=== PATIENT | male | born 1980 | race Two or more races ===

== ENCOUNTER 2017-11-06 08:56 | Emergency (ER) | payer MEDICAID, OTHER ==
[~2017-11-06] VITALS: Ht 175.3 cm; Wt 122.5 kg
[2017-11-06 09:16] VITALS: BP_SYST 71
== END 2017-11-06 10:17 | disposition home or self-care (01) ==
LOC: ER 08:58
DX: S39.012A Strain of muscle, fascia and tendon of lower back, initial encounter (principal); Z88.1 Allergy status to other antibiotic agents; X50.1XXA Overexertion from prolonged static or awkward postures, initial encounter; Y93.89 Activity, other specified; Y92.89 Other specified places as the place of occurrence of the external cause; Y99.8 Other external cause status
CPT/HCPCS: 72100

== ENCOUNTER 2017-11-26 10:53 | Emergency (ER) | payer MEDICAID ==
[~2017-11-26] VITALS: Ht 172.7 cm; Wt 95.7 kg
[2017-11-26 13:15] VITALS: BP 118/52
== END 2017-11-26 14:49 | disposition home or self-care (01) ==
LOC: ER 10:54
DX: S30.0XXA Contusion of lower back and pelvis, initial encounter (principal); Z88.1 Allergy status to other antibiotic agents; W18.39XA Other fall on same level, initial encounter; Y93.89 Activity, other specified; Y99.8 Other external cause status; Y92.89 Other specified places as the place of occurrence of the external cause
CPT/HCPCS: 72100; 72220; 93005

== ENCOUNTER 2019-01-08 20:37 | Emergency (ER) | payer MEDICAID ==
[~2019-01-08] VITALS: Ht 175.3 cm; Wt 102.1 kg
[2019-01-08 21:13] LABS: Basophils # (auto) 0.1 uL; Basophils % (auto) 0.6 % (0.0-2.0); Eosinophils # (auto) 0.2 uL; Eosinophils % (auto) 1.7 % (0.0-7.0); Hematocrit 45.5 % (41.0-53.0); Hemoglobin 15.5 g/dL (13.5-17.5); Lymphocytes # (auto) 1.5 uL; Lymphocytes % (auto) 15.2 % (10.0-50.0); Mean Corpuscular Hemoglobin 33.7 pg (28.0-32.0); Monocytes # (auto) 0.8 uL; Monocytes % (auto) 8.7 % (0.0-12.0); Neutrophils % (auto) 73.8 % (37.0-80.0); Nucleated Red Blood Cells % 0.1 %; Platelet Count (auto) 161 10^3/uL (140-450); Red Cell Distribution Width 12.9 % (11.8-14.3); White Blood Cell 9.5 10^3/uL (4.4-10.8)
[2019-01-08 21:30] LABS: Alanine Aminotransferase 10 U/L (16-61); Albumin 4.4 g/dL (3.4-5.0); Anion Gap 7 (5-15); Aspartate Aminotransferase 23 U/L (15-37); BUN/Creatinine Ratio 16.4; Blood Urea Nitrogen 21 mg/dL (7-18); Calcium 8.5 mg/dL (8.5-10.1); Carbon Dioxide 27 mmol/L (21-32); Chloride 103 mmol/L (98-107); GFR African American 80 mL/min; GFR Non-African American 66 mL/min; Glucose 100 mg/dL (74-106); Potassium 3.7 mmol/L (3.5-5.1); Sodium 137 mmol/L (136-145)
[2019-01-08 21:35] LABS: Alkaline Phosphatase 70 U/L (45-117); Bilirubin, Total 0.5 mg/dL (0.2-1.0); Total Protein 7.7 g/dL (6.4-8.2)
[2019-01-09] MEDS ORDERED: KETOROLAC TROMETH 60MG/2ML VIAL IM ONE (07:15)
[2019-01-09] MEDS ORDERED: LORazepam 0.5 MG TAB PO ONE (07:15)
[2019-01-09 07:59] VITALS: BP 114/82
== END 2019-01-09 08:55 | disposition home or self-care (01) ==
LOC: ER 20:39
DX: F41.9 Anxiety disorder, unspecified (principal); R07.89 Other chest pain; Z88.1 Allergy status to other antibiotic agents
CPT/HCPCS: 36415; 71045; 80053; 83735; 83880; 84484; 85025; 85379; 93005; 96372; 99284; J1885

== ENCOUNTER 2020-05-06 13:56 | Emergency (ER) | payer MEDICAID ==
[~2020-05-06] VITALS: Ht 175.3 cm; Wt 95.3 kg
[2020-05-06 14:39] LABS: Basophils # (auto) 0 10 ^3/uL (0-0.2); Basophils % (auto) 0.7 % (0.0-2.0); Eosinophils # (auto) 0.1 10 ^3/uL (0-0.8); Eosinophils % (auto) 1.6 % (0.0-7.0); Hematocrit 42.2 % (41.0-53.0); Hemoglobin 14.5 g/dL (13.5-17.5); Lymphocytes # (auto) 1.3 10 ^3/uL (0.4-5.4); Lymphocytes % (auto) 21.9 % (10.0-50.0); Mean Corpuscular Hemoglobin 33.5 pg (28.0-32.0); Mean Corpuscular Hgb Conc. 34.4 g/dL (32.0-36.0); Mean Corpuscular Volume 97.1 fL (80.0-100.0); Monocytes % (auto) 17.9 % (0.0-12.0); Neutrophils # (auto) 3.4 10 ^3/uL (1.6-8.6); Neutrophils % (auto) 57.9 % (37.0-80.0); Nucleated Red Blood Cells % 0.1 %; Platelet Count (auto) 150 10^3/uL (140-450); Red Blood Cells 4.35 10^6/uL (4.5-5.90); White Blood Cell 5.8 10^3/uL (4.4-10.8)
[2020-05-06 14:49] LABS: INR 0.93 (0.9-1.15)
[2020-05-06 14:53] LABS: Albumin 3.8 g/dL (3.4-5.0); Anion Gap 5 (5-15); Blood Urea Nitrogen 19 mg/dL (7-18); Calcium 8.4 mg/dL (8.5-10.1); Carbon Dioxide 26 mmol/L (21-32); Chloride 108 mmol/L (98-107); Glucose 128 mg/dL (74-106); Magnesium 2.1 mg/dL (1.6-2.6); Potassium 3.9 mmol/L (3.5-5.1); Sodium 139 mmol/L (136-145)
[2020-05-06 14:58] LABS: Alanine Aminotransferase 38 U/L (16-61); Alkaline Phosphatase 65 U/L (45-117); Aspartate Aminotransferase 28 U/L (15-37); BUN/Creatinine Ratio 17.6; Bilirubin, Total 0.3 mg/dL (0.2-1.0); GFR African American 97 mL/min; GFR Non-African American 80 mL/min; Total Protein 7.2 g/dL (6.4-8.2)
[2020-05-06 16:01] VITALS: BP 111/84
== END 2020-05-06 16:42 | disposition home or self-care (01) ==
LOC: ER 13:56
DX: R20.0 Anesthesia of skin (principal); R53.1 Weakness; Z88.1 Allergy status to other antibiotic agents
CPT/HCPCS: 36415; 70450; 71045; 80053; 83605; 83735; 83880; 84484; 85025; 85610; 93005

== ENCOUNTER 2021-04-08 09:03 | Emergency (ER) | payer MEDICAID ==
[~2021-04-08] VITALS: Ht 175.3 cm; Wt 90.7 kg
[2021-04-08] MEDS ORDERED: CLINDAMYCIN 600 MG/4 ML VL IM ONE (10:45)
[2021-04-08] MEDS ORDERED: cefTRIAXone W LIDOCAINE 1 GM IM IM ONE (10:45)
[2021-04-08] MEDS ORDERED: CLIN300C8 PO (11:05)
[2021-04-08] MEDS ORDERED: CEPH-509 PO (11:05)
[2021-04-08 14:20] VITALS: BP 130/87
== END 2021-04-08 14:31 | disposition home or self-care (01) ==
LOC: ER 09:03
DX: L03.115 Cellulitis of right lower limb (principal); I25.10 Atherosclerotic heart disease of native coronary artery without angina pectoris; Z88.1 Allergy status to other antibiotic agents
CPT/HCPCS: 93971; 99284; J0696

== ENCOUNTER 2022-05-20 09:51 | Emergency (ER) | payer MEDICAID ==
[~2022-05-20] VITALS: Ht 175.3 cm; Wt 112.0 kg
[~2022-05-20 09:51] MED LIST: CEPH-509 PO; CLIN300C8 PO
[2022-05-20 10:48] LABS: Basophils # (auto) 0.1 10 ^3/uL (0-0.2); Basophils % (auto) 0.5 % (0.0-2.0); Eosinophils # (auto) 0.1 10 ^3/uL (0-0.8); Eosinophils % (auto) 0.7 % (0.0-7.0); Hematocrit 41.4 % (41.0-53.0); Hemoglobin 13.8 g/dL (13.5-17.5); Lymphocytes % (auto) 5.5 % (10.0-50.0); Mean Corpuscular Hemoglobin 32.4 pg (28.0-32.0); Mean Corpuscular Hgb Conc. 33.4 g/dL (32.0-36.0); Monocytes # (auto) 1.5 10 ^3/uL (0-1.3); Monocytes % (auto) 8.2 % (0.0-12.0); Neutrophils # (auto) 15.8 10 ^3/uL (1.6-8.6); Neutrophils % (auto) 85.1 % (37.0-80.0); Nucleated Red Blood Cells % 0.1 %; Red Blood Cells 4.27 10^6/uL (4.5-5.90); Red Cell Distribution Width 14.2 % (11.8-14.3); White Blood Cell 18.6 10^3/uL (4.4-10.8)
[2022-05-20 11:08] LABS: Albumin 3.8 g/dL (3.4-5.0); Calcium 8.5 mg/dL (8.5-10.1); Potassium 3.4 mmol/L (3.5-5.1)
[2022-05-20 11:12] LABS: Total Protein 7.4 g/dL (6.4-8.2)
[2022-05-20] MEDS ORDERED: IOHEXOL 350 MG/ML 100ML IJ ONE (11:31)
[2022-05-20 16:39] VITALS: BP 127/74
== END 2022-05-20 16:43 | disposition home or self-care (01) ==
LOC: ER 09:51
DX: R22.41 Localized swelling, mass and lump, right lower limb (principal); R07.89 Other chest pain; J02.9 Acute pharyngitis, unspecified; I25.10 Atherosclerotic heart disease of native coronary artery without angina pectoris; Z88.1 Allergy status to other antibiotic agents
CPT/HCPCS: 36415; 71275; 80053; 85025; 93971; 99285; Q9967

== ENCOUNTER 2024-11-06 16:07 | Emergency (ER) | payer MEDICAID ==
[~2024-11-06] VITALS: Ht 175.3 cm; Wt 93.2 kg
[~2024-11-06 16:07] MED LIST changes: +CLIN1CAP70 PO; -CLIN300C8 PO
[2024-11-06] MEDS ORDERED: DONNATAL 5ml ORAL Elix (BELLADONNA ALK-PHENOBARB) PO ONE (16:45)
[2024-11-06] MEDS ORDERED: LIDOCAINE VISCOUS 2% 15ML UD PO ONE (16:45)
[2024-11-06] MEDS ORDERED: MAALOX PLUS or MAALOX 30 ML PO ONE (16:45)
--- NOTE | 2024-11-06 17:15 | ED.PDOC ---
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 Patient states the pain is constant, worse with lying down, associated with difficulty breathing when lying down due to pain with inspiration. He denies any fever, cough, nausea, vomiting, diarrhea, constipation or urinary symptoms. Patient states he had superior vena cava and brachiocephalic vein stent insertion in 2008 at [facility] for treatment of superior vena cava syndrome. They are known to be occluded since 2017. No additional intervention was recommended with regard to the occluded stents. Patient states vascular surgeon at [facility] advised him if it ain't broke, don't fix it. Chief Complaint: Abdominal Pain Time Seen by MD: 16:32 Primary Care Provider: LOS Pinto Notes: Nurses Notes, Medications, Allergies Allergies: Coded Allergies: Vancomycin (Verified Allergy, 10/13/11) Home Meds Active Scripts Clindamycin Hcl (Clindamycin Hcl) 300 Mg Cap, 300 MG PO TID for 10 Days, #30 CAP Prov:MORRO MALIK MD 04/08/21 Cephalexin (KEFLEX 500) 500 Mg Cap, 1 CAP PO TID for 10 Days, #30 CAP Prov:MORRO MALIK MD 04/08/21 Information Source: Patient Mode of Arrival: Ambulatory Past Medical History PAST MEDICAL HISTORY: Cancer, Thyroid Past Medical History (Other): Germ cell tumor, superior vena cava syndrome Surgical History (Other): SVC and brachiocephalic vein stents with a occlusion. Open chest surgery to remove germ cell tumor Family History Family History: Reviewed,noncontributory to illness Social History Smoker: Non-Smoker Alcohol: Denies ETOH Use Drugs: Marijuana Lives In: Home All Other Systems: Reviewed and Negative (Comprehensive systems review obtained and negative except for what is stated in the HPI.) Physical Exam General Appearance: No Apparent Distress HEENT: Other (Pupils and face symmetric. Moist mucous membranes.) Neck: Full Range of Motion, Normal Inspection Respiratory: Lungs Clear, No Accessory Muscle Use, No Respiratory Distress, Normal Breath Sounds, Other (Tenderness to palpation left lower costal margin) Cardiovascular: No Edema, No JVD, Regular Rate/Rhythm Breast Exam: Deferred Gastrointestinal: Soft, Tenderness (Localized left upper quadrant tenderness to palpation. No rebound or guarding.) Genitalia: Deferred Pelvic: Deferred Rectal: Deferred Extremities: Normal inspection, Normal range of motion, Non-tender, No pedal edema Neurologic: Alert (Oriented x4), Normal Affect, Normal Mood, Other (Ambulatory) Cerebellar Function: NOT DONE Reflexes: NOT DONE Skin: Dry, Normal Color, Warm Lymphatic: NOT DONE Was a procedure done? Was a procedure done?: No Differential Dx Considerations may include: Splenic infarction, congestive splenomegaly, acute pancreatitis, PUD or gastritis, splenic abscess, renal colic, pyelonephritis, musculoskeletal pain, splenic abscess, splenic rupture, AAA, aortic dissection, among others X-Ray, Labs, Meds, VS Vital Signs Date Time Temp Pulse Resp B/P (MAP) Pulse Ox O2 Delivery O2 Flow Rate FiO2 11/06/24 20:22 95 18 133/91 11/06/24 20:09 97.6 95 18 133/91 (105) 100 97.6 11/06/24 20:09 Room Air* 0 21 11/06/24 16:09 98.2 97 18 99/68 94 98.2 Lab Test 11/06/24 21:09 11/06/24 18:22 11/06/24 17:11 Range/Units Urine Color Yellow Yellow Urine Clarity Clear Clear Urine pH 6.0 5.0-9.0 Urine Specific [place] 1.028 1.001-1.035 Urine Protein Trace H Negative Urine Ketones Negative Negative Urine Blood Negative Negative /uL Urine Nitrite Negative Negative Urine Bilirubin Negative Negative Urine Urobilinogen Normal Negative mg/dL Urine Leukocyte Esterase Trace Negative /uL Urine RBC 7 0 - 3 /hpf Urine Microscopic WBC 5 H 0-3 /HPF Urine Squamous Epithelial Cells Few <5 /hpf Urine Bacteria None seen None Seen /hpf Urine Mucus Few None Seen Urine Glucose Normal Normal mg/dL Troponin I High Sensitivity < 3 L 4 </=54 ng/L White Blood Count 9.0 4.4-10.8 10^3/uL Red Blood Count 4.80 4.5-5.90 10^6/uL Hemoglobin 15.8 13.5-17.5 g/dL Hematocrit 46.6 41.0-53.0 % Mean Corpuscular Volume 97.0 80.0-100.0 fL Mean Corpuscular Hemoglobin 32.9 H 28.0-32.0 pg Mean Corpuscular Hemoglobin Concent 33.9 32.0-36.0 g/dL Red Cell Distribution Width 14.2 11.8-14.3 % Platelet Count 243 140-450 10^3/uL Mean Platelet Volume 9.4 6.9-10.8 fL Neutrophils (%) (Auto) 74.5 37.0-80.0 % Lymphocytes (%) (Auto) 14.3 10.0-50.0 % Monocytes (%) (Auto) 9.0 0.0-12.0 % Eosinophils (%) (Auto) 1.6 0.0-7.0 % Basophils (%) (Auto) 0.6 0.0-2.0 % Neutrophils # (Auto) 6.7 1.6-8.6 10 ^3/uL Lymphocytes # (Auto) 1.3 0.4-5.4 10 ^3/uL Monocytes # (Auto) 0.8 0-1.3 10 ^3/uL Eosinophils # (Auto) 0.1 0-0.8 10 ^3/uL Basophils # (Auto) 0.1 0-0.2 10 ^3/uL Nucleated Red Blood Cells 0.1 % Sodium Level 140 136-145 mmol/L Potassium Level 3.6 3.5-5.1 mmol/L Chloride Level 103 98-107 mmol/L Carbon Dioxide Level 28 20-31 mmol/L Anion Gap 9 5-15 Blood Urea Nitrogen 19 9-23 mg/dL Creatinine 1.22 0.700-1.30 mg/dL Glomerular Filtration Rate Calc 74 >90 mL/min BUN/Creatinine Ratio 15.6 10.0-20.0 Serum Glucose 114 H 74-106 mg/dL Lactic Acid Level 1.2 0.4-2.0 mmol/L Calcium Level 9.0 8.7-10.4 mg/dL Total Bilirubin 0.9 0.2-1.0 mg/dL Aspartate Amino Transferase (AST) 23 13-40 U/L Alanine Aminotransferase (ALT) 20 7-40 U/L Alkaline Phosphatase 94 46-116 U/L B-Type Natriuretic Peptide 16.43 0-100 pg/mL Total Protein 7.6 5.7-8.2 g/dL Albumin 4.8 3.2-4.8 g/dL Lipase 45 12-53 U/L Current Medications Medications (Trade) Dose Ordered Sig/Kun Route Start Time Stop Time Status Last Admin Morphine Sulfate 4 mg ONCE ONCE IV 11/06/24 17:00 11/06/24 17:04 DC 11/06/24 20:22 Ondansetron HCl (Zofran) 4 mg ONCE ONCE IV 11/06/24 17:00 11/06/24 17:04 DC 11/06/24 20:21 [place] [address] Ph: [phone] DIAGNOSTIC IMAGING Diagnostic Imaging Report : [id number] Signed PATIENT: KAREN CHANDRA ACCT: [id number] UNIT: [id number] : 1980 LOC: ER ROOM / BED: / AGE / SEX: 44 / M ADM STATUS: REG ER SERVICE [id number] ORDERING PHYSICIAN: HOME HERNANDEZ MD PROCEDURE(s): ABPL - CT AB PEL WO CON-NO ORAL OR IV REASON: luq pain ORDER NUMBER(s): [id number], ACCESSION NUMBER(s): [id number] Exam: CT CT AB PEL WO CON-NO ORAL OR IV History: luq pain Comparison Study: None TECHNIQUE: Multidetector CT of the abdomen was performed from lung bases to pubic symphysis. Imaging was performed without IV contrast. Axial, coronal and sagittal multiplanar reformats were obtained from the axial data set by the technologist. Radiation Dose Information: CT Dose: CTDI volume is 19.23 mGy. Dose-length product is 1074.38 mGy*cm FINDINGS: Evaluation of solid organs is limited due to lack of intravenous contrast use. Findings: Lung Bases: No acute or significant lung base finding. Normal heart size. No pleural or pericardial effusion. Liver: The liver is normal in size. No focal lesions. Gallbladder and Biliary Tree: Unremarkable Spleen: Unremarkable Pancreas: The pancreas is grossly normal in appearance. Adrenal Glands: Unremarkable Kidneys: Kidneys are grossly normal without calculi or hydronephrosis. Bladder: Grossly unremarkable for degree of distention. Bowel: The stomach is grossly normal in appearance. Small bowel and colon are normal in caliber and distribution. 6 cm stool-filled rectum. The appendix is not visualized; however, no secondary findings of acute appendicitis identified. Ascites: Absent Lymphadenopathy: No mesenteric, retroperitoneal or periportal lymphadenopathy. Abdominal Wall and Mesentery: Unremarkable. Vasculature: The visualized abdominal aorta is normal in size and caliber. Evaluation of abdominal and pelvic vessels is limited due to lack of intravenous contrast. Pelvic Organs: Unremarkable Musculoskeletal: No aggressive focal bony lesions, acute fractures or dislocation. Soft tissues: Unremarkable IMPRESSION: 1. 6 cm stool-filled rectum. Consider fecal impaction 2. No findings of sigmoid diverticulitis 3. 2.2 cm fat filled left inguinal hernia. 4. 4 cm left renal cyst. 5. Multiple old healed left rib fractures Radiation optimization: All CT scans at this facility use at least one of these dose optimization techniques: automated exposure control mA and/or kV adj ustment per patient size (includes targeted exams where dose is matched to clinical indication) or iterative reconstruction. 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 Vitals remarkable for oxygen saturation 94% on room air mild hypoxia Exam remarkable for localized left upper quadrant and left lower costal margin tenderness to palpation Rhythm strip independently interpreted by me: Sinus rhythm, rate 87, no ectopy. CT abdomen and pelvis IMPRESSION: 1. 6 cm stool-filled rectum. Consider fecal impaction 2. No findings of sigmoid diverticulitis 3. 2.2 cm fat filled left inguinal hernia. 4. 4 cm left renal cyst. 5. Multiple old healed left rib fractures CBC, CMP, lipase, UA, BNP, troponin unremarkable Patient treated with the following in the ED: Morphine 4 mg IV, Zofran 4 mg IV On re-evaluation, patient states pain has improved. Vitals were stable. He denies constipation, so doubt fecal impaction. The 4 cm left renal cyst may be causing the left upper quadrant discomfort. Alternatively, there may be an element of costochondritis due to old left rib fractures. There was no evidence of splenic abnormality on CT. Patient appears stable for discharge with close outpatient follow-up with his primary doctor for further evaluation of the renal cyst. Rx ibuprofen, [place], Colace Time of 1ST Reevaluation: 17:14 Reevaluation 1ST: Unchanged Patient Education/Counseling: Diagnosis, Treatment Family Education/Counseling: No Family Present SEPSIS Sepsis Screen Date sepsis recognized/suspect: Nov 06, 2024 Time Sepsis recognized/suspect: 1610 Recent Procedure: No On Antibiotic Therapy: No Respiratory Rate >20: No Heart Rate >90: No Temp<36 C (96.8 F) or >38.3 C: No SBP <90 or MAP <65 mmHG: No New Acute Mental Status Change: No Is the patient on CPAP, BIPAP,: No Physician Orders Ct Ab Pel Wo Con-No Oral Or Iv (11/06/24 16:34) Electrocardigram (11/06/24 16:35) Vital Signs Date Time Temp Pulse Resp B/P (MAP) Pulse Ox O2 Delivery O2 Flow Rate FiO2 11/06/24 20:22 95 18 133/91 11/06/24 20:09 97.6 95 18 133/91 (105) 100 97.6 11/06/24 20:09 Room Air* 0 21 11/06/24 16:09 98.2 97 18 99/68 94 98.2 Laboratory Tests Test 11/06/24 17:11 Lactic Acid Level 1.2 mmol/L (0.4-2.0) White Blood Count 9.0 10^3/uL (4.4-10.8) Medications Medications Dose Ordered Sig/Kun Route Start Time Stop Time Status Last Admin Dose Admin Morphine Sulfate 4 mg ONCE ONCE IV 11/06/24 17:00 11/06/24 17:04 DC 11/06/24 20:22 Ondansetron HCl 4 mg ONCE ONCE IV 11/06/24 17:00 11/06/24 17:04 DC 11/06/24 20:21 Departure 1 Departure Time of Disposition: 22:18 Impression: Primary Impression: Renal cyst, left Additional Impression: Left upper quadrant abdominal pain Disposition: HOME / SELF CARE / HOMELESS Condition: Stable Additional Instructions: Your blood and urine tests were unremarkable. Your CT scan showed a cyst on your left kidney, old healed left lower rib fractures, and a large amount of stool in part of your colon. Any of these findings may be the cause of your pain. I have prescribed pain medication and a stool softener. No other acute treatment is necessary at this time, only close follow-up with your primary doctor for further evaluation of the cyst on your kidney. I have provided the CT report below. Follow-up with your primary doctor in 1-2 days. Return to ER for persistent or worsening symptoms. [place] [address] Ph: [phone] DIAGNOSTIC IMAGING Diagnostic Imaging Report : [id number] Signed PATIENT: KAREN CHANDRA ACCT: [id number] UNIT: [id number] : 1980 LOC: ER ROOM / BED: / AGE / SEX: 44 / M ADM STATUS: REG ER SERVICE [id number] ORDERING PHYSICIAN: HOME HERNANDEZ MD PROCEDURE(s): ABPL - CT AB PEL WO CON-NO ORAL OR IV REASON: luq pain ORDER NUMBER(s): [id number], ACCESSION NUMBER(s): [id number] Exam: CT CT AB PEL WO CON-NO ORAL OR IV History: luq pain Comparison Study: None TECHNIQUE: Multidetector CT of the abdomen was performed from lung bases to pubic symphysis. Imaging was performed without IV contrast. Axial, coronal and sagittal multiplanar reformats were obtained from the axial data set by the technologist. Radiation Dose Information: CT Dose: CTDI volume is 19.23 mGy. Dose-length product is 1074.38 mGy*cm FINDINGS: Evaluation of solid organs is limited due to lack of intravenous contrast use. Findings: Lung Bases: No acute or significant lung base finding. Normal heart size. No pleural or pericardial effusion. Liver: The liver is normal in size. No focal lesions. Gallbladder and Biliary Tree: Unremarkable Spleen: Unremarkable Pancreas: The pancreas is grossly normal in appearance. Adrenal Glands: Unremarkable Kidneys: Kidneys are grossly normal without calculi or hydronephrosis. Bladder: Grossly unremarkable for degree of distention. Bowel: The stomach is grossly normal in appearance. Small bowel and colon are normal in caliber and distribution. 6 cm stool-filled rectum. The appendix is not visualized; however, no secondary findings of acute appendicitis identified. Ascites: Absent Lymphadenopathy: No mesenteric, retroperitoneal or periportal lymphadenopathy. Abdominal Wall and Mesentery: Unremarkable. Vasculature: The visualized abdominal aorta is normal in size and caliber. [place] luation of abdominal and pelvic vessels is limited due to lack of intravenous contrast. Pelvic Organs: Unremarkable Musculoskeletal: No aggressive focal bony lesions, acute fractures or dislocation. Soft tissues: Unremarkable IMPRESSION: 1. 6 cm stool-filled rectum. Consider fecal impaction 2. No findings of sigmoid diverticulitis 3. 2.2 cm fat filled left inguinal hernia. 4. 4 cm left renal cyst. 5. Multiple old healed left rib fractures Radiation optimization: All CT scans at this facility use at least one of these dose optimization techniques: automated exposure control mA and/or kV adjustment per patient size (includes targeted exams where dose is matched to clinical indication) or iterative reconstruction. e-Prescriptions Docusate Sodium (Colace) 100 Mg Cap 1 CAP PO HS PRN, #30 CAP PRN constipation Prov: HOME HERNANDEZ MD 11/06/24 Hydrocodone-Acetaminophen (Hydrocodone Bitartrate/AC 5-325 mg) 1 Tab Tab 1 TAB PO Q6HP PRN, #20 TAB Prn breakthrough pain Prov: HOME HERNANDEZ MD 11/06/24 Ibuprofen Micronized (Ibuprofen) 800 Mg Tab 800 MG PO Q8HP PRN, #30 TAB Prn pain. Take with food. Prov: HOME HERNANDEZ MD 11/06/24 Discharged With: Relative Critical Care Note Critical Care Time?: No Stability Stability form required: No Heart Score Heart Score: Heart Score Response (Comments) Value History N/A 0 EKG N/A 0 Age N/A 0 Risk Factors N/A 0 Troponin N/A 0 Total 0 I personally scribed for HOME HERNANDEZ MD ([email or web address]) on 11/06/24 at 17:48. Electronically submitted by Cali Jose ([email or web address]). I personally scribed for HOME HERNANDEZ MD ([email or web address]) on 11/06/24 at 21:15. Electronically submitted by Cali Jose ([email or web address]). HOME HERNANDEZ MD Nov 06, 2024 17:15
--- NOTE | 2024-11-06 17:23 | DVH ---
Exam: CT CT AB PEL WO CON-NO ORAL OR IV History: luq pain Comparison Study: None TECHNIQUE: Multidetector CT of the abdomen was performed from lung bases to pubic symphysis. Imaging was performed without IV contrast. Axial, coronal and sagittal multiplanar reformats were obtained fr om the axial data set by the technologist. Radiation Dose Information: CT Dose: CTDI volume is 19.23 mGy. Dose-length product is 1074.38 mGy*cm FINDINGS: Evaluation of solid organs is limited due to lack of intravenous contrast use. Findings: Lung Bases: No acute or significant lung base finding. Normal heart size. No pleural or pericardial effusion. Liver: The liver is normal in size. No focal lesions. Gallbladder and Biliary Tree: Unremarkable Spleen: Unremarkable Pancreas: The pancreas is grossly normal in appearance. Adrenal Glands: Unremarkable Kidneys: Kidneys are grossly normal without calculi or hydronephrosis. Bladder: Grossly unremarkable for degree of distention. Bowel: The stomach is grossly normal in appearance. Small bowel and colon are normal in caliber and d istribution. 6 cm stool-filled rectum. The appendix is not visualized; however, no secondary findings of acute appendicitis identified. Ascites: Absent Lymphadenopathy: No mesenteric, retroperitoneal or periportal lymphadenopathy. Abdominal Wall and Mesentery: Unremarkable. Vasculature: The visualized abdominal aorta is normal in size and caliber. Evaluation of abdominal a nd pelvic vessels is limited due to lack of intravenous contrast. Pelvic Organs: Unremarkable Musculoskeletal: No aggressive focal bony lesions, acute fractures or dislocation. Soft tissues: Unremarkable IMPRESSION: 1. 6 cm stool-filled rectum. Consider fecal impaction 2. No findings of sigmoid diverticulitis 3. 2.2 cm fat filled left inguinal hernia. 4. 4 cm left renal cyst. 5. Multiple old healed left rib fractures Radiation optimization: All CT scans at this facility use at least one of these dose optimization te chniques: automated exposure control mA and/or kV adjustment per patient size (includes targeted exa ms where dose is matched to clinical indication) or iterative reconstruction.
[2024-11-06 17:28] LABS: Hematocrit 46.6 % (41.0-53.0); Hemoglobin 15.8 g/dL (13.5-17.5); Mean Corpuscular Hemoglobin 32.9 pg (28.0-32.0); Mean Corpuscular Volume 97.0 fL (80.0-100.0); Nucleated Red Blood Cells % 0.1 %
[2024-11-06 17:43] LABS: Alanine Aminotransferase 20 U/L (7-40); Albumin 4.8 g/dL (3.2-4.8); Alkaline Phosphatase 94 U/L (46-116); Anion Gap 9 (5-15); BUN/Creatinine Ratio 15.6 (10.0-20.0); Bilirubin, Total 0.9 mg/dL (0.2-1.0); Blood Urea Nitrogen 19 mg/dL (9-23); Calcium 9.0 mg/dL (8.7-10.4); Carbon Dioxide 28 mmol/L (20-31); Chloride 103 mmol/L (98-107); Glucose 114 mg/dL (74-106); Lipase 45 U/L (12-53); Potassium 3.6 mmol/L (3.5-5.1); Sodium 140 mmol/L (136-145); Total Protein 7.6 g/dL (5.7-8.2)
[2024-11-06] MEDS: ONDANSETRON HCL 4 MG/2 ML VIAL IV ONE (20:21)
[2024-11-06] MEDS: MORPHINE SULFATE 4 MG/ML SYR/VIAL IV ONE (20:22)
[2024-11-06 21:23] LABS: Urine Protein, UAD TRACE (Negative)
[2024-11-06] MEDS ORDERED: DOCU-94 PO (22:23)
[2024-11-06] MEDS ORDERED: HYDR-4902 PO (22:23)
[2024-11-06] MEDS ORDERED: IBUP-1455 PO (22:23)
[2024-11-06 22:35] VITALS: BP 127/72; PULSE 88; RESP 16; TEMP 97.6; O2SAT 100
== END 2024-11-06 22:50 | disposition home or self-care (01) ==
LOC: ER 16:07
DX: N28.1 Cyst of kidney, acquired (principal); R10.12 Left upper quadrant pain; Z88.1 Allergy status to other antibiotic agents; Z79.899 Other long term (current) drug therapy
CPT/HCPCS: 36415; 74176; 80053; 81001; 83605; 83690; 83880; 84484; 85025; 96374; 96375; 99285; J2270; J2405